=== PATIENT | female | born 1955 | race Caucasian/White ===

== ENCOUNTER 2018-02-13 14:27 | Outpatient (CLI) | payer MEDICARE ==
--- NOTE | 2018-02-13 16:19 | RAD ---
CERVICAL SPINE SIX VIEWS: Date: 02-13-18 Comparison: None. History: Paresthesia. FINDINGS: Imaging includes frontal, bilateral oblique, lateral, swimmer's lateral, and open mouth odontoid view . The dens appears intact and the C1-2 articulation appears normal on the open mouth odontoid view. There is disc space narrowing with degenerative endplate change and anterior osteophyte formation at C5-6, C6-7, and C7-T1. Lateral imaging demonstrates no anterolisthesis or retrolisthesis. Oblique imaging demonstrates mild neural foraminal stenosis at C4-5, C5-6, and C6-7 on the right and mild neural foraminal stenosis on the left at C4-5 and C5-6. The frontal imaging demonstrates C5-6 bi lateral facet and uncal vertebral osteophyte formation, right greater than left, and C6-7 bilateral f acet and uncal vertebral osteophyte formation. No acute osseous abnormality. IMPRESSION: Multilevel degenerative change within the cervical spine. POS: [facility]
--- NOTE | 2018-02-13 16:20 | RAD ---
THREE VIEWS LUMBAR SPINE: Date: 02-13-18 Comparison: None. History: Paresthesia. FINDINGS: There is anterolisthesis at L3-4 measuring 6 mm. At L3-4, L4-5, and L6-S1 there is bilateral facet hy pertrophy. There is disc space narrowing and degenerative endplate change at L1-2 and L5-S1. No fract ure. IMPRESSION: No acute osseous abnormality. Multilevel degenerative change within the lumbar spine as above. POS: [facility]
== END 2018-02-13 14:28 | disposition home or self-care (01) ==
LOC: MADRAD 14:27
PROVIDERS: ATTEND Physician Assistant
DX: R20.2 Paresthesia of skin (principal); M47.896 Other spondylosis, lumbar region; M47.897 Other spondylosis, lumbosacral region; M47.892 Other spondylosis, cervical region
CPT/HCPCS: 72050; 72100

== ENCOUNTER 2018-03-16 10:47 | Outpatient (CLI) | payer MEDICARE ==
--- NOTE | 2018-03-16 11:29 | RAD ---
PA AND LATERAL CHEST: Indication: Shortness of breath. Comparison: None. FINDINGS: Lungs are clear. Cardiomediastinal silhouette is within normal limits. No acute osseous abnormality i s evident. IMPRESSION: No acute cardiopulmonary abnormality. POS: [place]
--- NOTE | 2018-03-16 12:40 | RAD ---
THREE VIEWS LEFT WRIST: Indication: Chronic left wrist pain. FINDINGS: There is a healed fracture deformity involving the distal radius. There is a chronic ununited fractur e involving the ulnar styloid process. There is moderate osteoarthrosis. No acute fracture or subluxa tion is evident. Carpal alignment appears within normal limits. There is a chronic appearing ununited fracture involving the dorsal aspect of the triquetrum. IMPRESSION: 1. Post-traumatic changes of the left wrist. 2. Mild osteoarthrosis of the left wrist and 1st CMC joint 3. No acute fracture or subluxation demonstrated. POS: [facility]
== END 2018-03-16 10:48 | disposition home or self-care (01) ==
LOC: MADRAD 10:47
PROVIDERS: ATTEND Physician Assistant
DX: M25.532 Pain in left wrist (principal); R06.02 Shortness of breath; M19.032 Primary osteoarthritis, left wrist; Z98.890 Other specified postprocedural states
CPT/HCPCS: 71046

== ENCOUNTER 2019-01-15 10:55 | Emergency (ER) | payer MEDICARE ==
[2019-01-15] MEDS ORDERED: Sodium Chloride 0.9% 1,000 ML BAG ONE (12:01)
[2019-01-15 12:04] LABS: #Basophils 0.1 thou/uL (0.0-0.2); #Eosinphils 0.1 thou/uL (0.0-0.7); #Lymphocytes 2.6 thou/uL (1.20-3.40); #Monocytes 0.7 thou/uL (0.11-0.59); #Neutrophils 6.2 thou/uL (1.40-6.50); %Eosinophils 0.9 % (0.0-10.0); %Lymphocytes 26.8 % (21.0-51.0); %Monocytes 7.1 % (0.0-10.0); %Neutrophils 64.2 % (42.0-75.0); Hemoglobin 14.4 g/dL (12.0-16.0); Mean Corpuscular HGB CONC 33.3 g/dL (32.0-36.0); Mean Corpuscular Hemoglobin 29.7 pg (27.0-31.0); Mean Corpuscular Volume 89.2 fL (78.0-98.0); Mean Platelet Volume 5.7 fL (7.4-10.4); Platelet Count 201 thou/uL (130-400); RBC Distribution Width 11.3 % (11.5-14.5); Red Blood Cell (RBC) Count 4.86 mill/uL (4.20-5.40); White Blood Cell (WBC) Count 9.6 thou/uL (4.8-10.8)
[2019-01-15] MEDS ORDERED: Sodium Chloride 0.9% 1,000 ML ONE (12:06)
[2019-01-15] MEDS ORDERED: Iopamidol 370 76% 125 ML VIAL FS ONE (12:10)
[2019-01-15 12:26] LABS: ALT (SGPT) 31 U/L (8-55); AST (SGOT) 22 U/L (5-34); Albumin 4.4 g/dL (3.4-4.8); Alkaline Phosphatase 69 U/L (40-150); Anion Gap 16 mmol/L (10-20); BUN (Urea Nitrogen) 9 mg/dL (9.8-20.1); Bilirubin, Total 0.6 mg/dL (0.2-1.2); Calc. Creatinine Clearance 0 mL/min (70-130); Calcium 9.5 mg/dL (7.8-10.44); Carbon Dioxide 24 mmol/L (23-31); Chloride 105 mmol/L (98-107); Estimated GFR-MDRD 81; Globulin 3.1 g/dL (2.4-3.5); Glucose 101 mg/dL (80-115); Protein, Total 7.5 g/dL (6.0-8.3); Sodium 141 mmol/L (136-145)
[2019-01-15 13:00] LABS: Bilirubin Negative (Negative); Blood, Urine Trace (Negative); Clarity Clear (Clear); Glucose, Urine (Dipstick) Negative (Negative); Leukocyte Negative (Negative); Nitrite Negative (Negative); Protein, Urine (Dipstick) Negative (Neg-Trace); Urobilinogen 0.2 mg/dL (0.2-1.0)
[2019-01-15 13:09] LABS: Bacteria/HPF Rare-Few HPF (None Seen); RBC/HPF 0-3 HPF (0-3); Squamous Epithelial 0-3 HPF (0-3); WBC/HPF None Seen HPF (0-3)
--- NOTE | 2019-01-15 13:16 | CT ---
CT ABDOMEN AND PELVIS WITH IV CONTRAST 01/15/2019 CLINICAL INFORMATION: Right lower quadrant abdominal pain. COMPARISON: None. Technique: Multiple contiguous axial CT images are obtained through the abdomen and pelvis with IV contrast. Cor onal reformatted images are provided. FINDINGS: Lower Chest: Minimal atelectasis versus scarring. Vessels: Scattered atherosclerotic vascular calcifications. The abdominal aorta is normal in caliber without evidence of an aortic dissection. Abdomen: Portal vein:Patent Gallbladder: Within normal limits for CT imaging. Liver: Diminished attenuation relative to the spleen likely compatible with fatty infiltration. The l iver is enlarged measuring 21.8 cm in craniocaudal dimensions. Spleen: within normal limits. Pancreas: within normal limits. Adrenals: Within normal limits. Kidneys: Approximately 2 mm hypodense lesion midportion right kidney with an attenuation coefficient suggesting a small cyst. Bowel: Colonic diverticulosis. Small bowel is normal in caliber. Appendix: Prominent appendicolith in the proximal appendix measuring 8 mm. The appendix distal this r egion also demonstrates increased density material within the lumen likely representing additional appendicoliths. The appendix is dilated measuring 11 mm distal to the appendicolith with adjacent per iappendiceal inflammatory changes suggesting appendicitis. Peritoneum: No ascites or free air; no fluid collection. Mesentery and Retroperitoneum: No enlarged mesenteric or retroperitoneal lymph nodes. Abdominal Wall: within normal limits. Pelvis: Reproductive Organs: No pelvic masses. Pelvis within normal limits. Bladder: within normal limits. Bones: Degenerative changes in the lower lumbar spine appear. IMPRESSION: 1. Acute appendicitis without adjacent fluid collection to suggest abscess, and no free intraperitone al gas is visualized. 2. Colonic diverticulosis. 3. Right renal cyst. 4. Hepatomegaly and fatty infiltration of the liver. 5. Above findings discussed with Dr. Zuniga in the emergency department on 01/15/2019 at 1311 hours.
[2019-01-15] MEDS ORDERED: Piperacillin/Tazobactam 4.5 GM VIAL ONE (14:04)
[2019-01-15] MEDS ORDERED: Sodium Chloride 0.9% 100 ML ONE (14:04)
[2019-01-15] MEDS ORDERED: Fentanyl 100 MCG/2 ML VIAL ONE (19:25)
[2019-01-15] MEDS ORDERED: Bupivacaine/Epinephrine 0.25% 30 ML VIAL ONE (19:48)
[2019-01-15] MEDS ORDERED: Piperacillin/Tazobactam 3.375 GM VIAL ONE (20:00)
[2019-01-15] MEDS ORDERED: Sodium Chloride 0.9% 10 ML ONE (20:00)
[2019-01-15] MEDS ORDERED: Midazolam HCl 2 mg/2 ml Vial ONE (20:09)
== END 2019-01-15 15:02 | disposition short-term general hospital (02) ==
LOC: MADERS 10:55
DX: K35.80 Unspecified acute appendicitis (principal); E03.9 Hypothyroidism, unspecified; E78.2 Mixed hyperlipidemia; Z79.899 Other long term (current) drug therapy; Z87.891 Personal history of nicotine dependence
CPT/HCPCS: 74177; 80053; 81003; 81015; 83605; 85025; 87086; 96361; 96365; J0131; J2250; J2543; J3010; J3490; J7050; Q9967

== ENCOUNTER 2019-04-12 08:52 | Outpatient (CLI) | payer MEDICARE ==
--- NOTE | 2019-04-12 09:43 | RAD ---
THREE VIEWS OF THE LEFT SHOULDER: COMPARISON: None. HISTORY: Chronic pain in shoulder for 2 months. FINDINGS: Three views left shoulder show no evidence of acute fracture or dislocation. Moderate degenerative c hanges are seen in the glenohumeral joint with an osteophyte seen along the humeral head. Visualized left thorax is unremarkable. IMPRESSION: Moderate left shoulder osteoarthritis. POS: [facility]
== END 2019-04-12 08:53 | disposition home or self-care (01) ==
LOC: MADRAD 08:52
PROVIDERS: ATTEND Physician Assistant
DX: M25.512 Pain in left shoulder (principal); M19.012 Primary osteoarthritis, left shoulder

== ENCOUNTER 2020-02-04 12:16 | Outpatient (CLI) | payer MEDICARE ==
--- NOTE | 2020-02-04 13:06 | RAD ---
LEFT SHOULDER 3 VIEWS: Date: 02/04/2020 HISTORY: Pain. Comparison made to prior left shoulder films of 04/12/2019. FINDINGS: Degenerative changes at the shoulder again noted. Spurring from the humeral head is again seen and is unchanged in appearance from prior exam. AC joint is normally aligned. There is no fracture, disloca tion, or acute abnormality. IMPRESSION: Degenerative changes of the left shoulder again noted, stable from prior exam. POS: [facility]
== END 2020-02-04 12:17 | disposition home or self-care (01) ==
LOC: MADRAD 12:16
PROVIDERS: ATTEND Physician Assistant
DX: M79.602 Pain in left arm (principal); M19.012 Primary osteoarthritis, left shoulder

== ENCOUNTER 2021-09-14 14:12 | Outpatient (CLI) | payer MEDICARE, OTHER | END 2021-09-14 14:13 | disposition home or self-care (01) | LOC: MADRAD 14:12 | PROVIDERS: ATTEND Physician Assistant | DX: R06.02 Shortness of breath (principal) | CPT/HCPCS: 71046 ==

== ENCOUNTER 2023-09-19 13:38 | Outpatient (CLI) | payer OTHER | END 2023-09-19 13:39 | disposition home or self-care (01) | LOC: MADRAD 13:38 | PROVIDERS: ATTEND Physician Assistant | DX: J40 Bronchitis, not specified as acute or chronic (principal); I51.7 Cardiomegaly; I28.8 Other diseases of pulmonary vessels | CPT/HCPCS: 71046 ==